=== PATIENT | female | born 1945 | race Caucasian/White ===

== ENCOUNTER → 2017-10-06 | Outpatient (CLI) | payer MEDICARE, OTHER ==
[~2017-10-06] MED LIST: CIPR-344 PO; CIPR500S3 PO; CLON-388 PO; CYAN500T54 PO; ESC10 PO; ESTR0.62 PO; HYDR-2966 PO; HYDR-4309 PO; LEVO-317 PO; LISI10TA PO; METO50TA19 PO; METR-1 PO; MIRA50TA PO; ONDA4TAB PO; ONDA8TAB94 PO
--- NOTE | 2017-10-08 15:07 | RADIOLOGY IMAGING REPORT ---
FACILITY: [facility] [place] PATIENT NAME: MAGDALENO WADDELL : [id number] MR: [id number] V: [id number] EXAM DATE: [id number] ORDERING PHYSICIAN: MEDINA GANDHI TECHNOLOGIST: Arminda Baez PROCEDURE:BILATERAL DIGITAL SCREENING MAMMOGRAM WITH CAD ASSISTED INTERPRETATION AND 3D BREAST TOMOSYNTHESIS. COMPARISON:Prior mammograms dated 07/15/16, 07/23/15, 07/25/14, 06/22/13 and 06/23/12. FINDINGS: A small amount of fibroglandular tissue is seen throughout the breasts. The parenchymal pattern has remained stable when allowing for difference in mammographic technique and patient positioning. There is no evidence of malignant appearing mass, malignant appearing calcification or other secondary sign of malignancy in either breast. DIAGNOSTIC CATEGORY 1--NEGATIVE. RECOMMENDATIONS: ROUTINE MAMMOGRAM AND CLINICAL EVALUATION. IMPRESSION: Bi-RADS 1: No significant abnormality is seen. Images were reviewed with R2CAD and 3D breast tomosynthesis. Dictated by: Argentina Zelaya M.D. on 10/06/2017 at 13:23 Transcribed by: HILLARY on 10/07/2017 at 18:49 Approved by: Argentina Zelaya M.D. on 10/08/2017 at 15:06 [facility]
== END ==
LOC: MAMO 02:24
PROVIDERS: ATTEND Family Medicine
DX: Z12.31 Encounter for screening mammogram for malignant neoplasm of breast (principal)
CPT/HCPCS: 77063; 77067

== ENCOUNTER 2017-11-09 00:27 | Day surgery (SDC) | payer MEDICARE, OTHER ==
--- NOTE | 2017-11-08 12:26 | NACHTIGAL H&P ---
DATE OF ADMISSION: November 09, 2017 CHIEF COMPLAINT Lump in the upper right arm. HISTORY OF PRESENT ILLNESS This is a 72-year-old female who complains of a painful lump in the upper right arm. No history of trauma. Lump has been there for quite some time. ALLERGIES She has no known allergies. CURRENT MEDICATIONS 1. Clonazepam 0.5 mg nightly. 2. Escitalopram 10 mg. 3. Levoxyl 112 mcg. 4. Metoprolol 50 mg. 5. Myrbetriq 50 mg. PAST MEDICAL HISTORY/OPERATIONS She has had a back operation, cataract removal, cholecystectomy, colonoscopy, gastric sleeve operation, hysterectomy, lap band, shoulder surgery. REVIEW OF SYSTEMS No cardiac disease, pulmonary disease, liver or kidney disease, diabetes. She does have hypertension. PHYSICAL EXAMINATION GENERAL: 72-year-old female in no acute distress. LUNGS: Clear. HEART: Regular rhythm. SKIN: She has a 6 cm subcutaneous mass in the upper arm laterally. IMPRESSION Lipoma. PLAN Will excise. Discussed procedure, complications, recovery time. She seemed to understand and wishes to proceed. SUDEEP
[~2017-11-09] VITALS: Ht 154.9 cm; Wt 79.8 kg
[~2017-11-09 00:27] MED LIST changes: +BIOT5000 PO
--- NOTE | 2017-11-09 12:19 | Post Operative Progress Note ---
Post Operative Progress Note Date: Nov 09, 2017 Time: 14:26 Surgeon: argenis Anesthesia: dr zambrano Pre-Op Diagnosis: lipoma right upper arm Post-Op Diagnosis: same Procedure(s): excision of 6 cm lipoma right upper arm MEKHI JACK MD Nov 09, 2017 12:19
[2017-11-09] MEDS ORDERED: HYDR-4309 PO (12:20)
--- NOTE | 2017-11-09 12:22 | Short(Outpt) Discharge Summary ---
Discharge Summary Reason for Hosp/Final Diag: (1) Lipoma of extremity Hospital Course & Plan: 6 cm lipoma excised right upper arm Departure Discharge to: Home Discharge Instructions Home Meds Active Scripts Hydrocodone Bit/Acetaminophen (NORCO 5-325 TABLET) 1 Each Tablet, 1 EACH PO Q4H Y for PAIN, #20 TAB Prov:MEKHI JACK MD 11/09/17 Reported Medications Biotin (Biotin) 5,000 Mcg Tab.rapdis, 5000 MCG PO DAILY 11/08/17 Cyanocobalamin (Vitamin B-12) (B-12) 500 Mcg Tablet, 1 TAB PO DAILY 09/11/13 Clonazepam (CLONAZEPAM) 0.5 Mg Tab.rapdis, 1 TAB PO DAILY 09/11/13 Mirabegron (MYRBETRIQ) 50 Mg Tab.er.24h, 1 TAB PO DAILY 09/11/13 Escitalopram Oxalate (LEXAPRO) 10 Mg Tab, 1 TAB PO DAILY 09/11/13 Metoprolol Succinate (METOPROLOL SUCCINATE) 50 Mg Tab.er.24h, 1 TAB PO BID 09/11/13 Levothyroxine Sodium (LEVOXYL) 125 Mcg Tablet, 1 TAB PO DAILY 09/11/13 Discontinued Reported Medications Ciprofloxacin Hcl (CIPRO) 500 Mg Tablet, 500 MG PO BID 09/11/13 Metronidazole (FLAGYL) 500 Mg Tablet, 500 MG PO TID 09/11/13 Hydrocodone Bit/Acetaminophen (NORCO 5-325 TABLET) 1 Each Tablet, 1 EACH PO Q6H 09/11/13 Ondansetron (ZOFRAN ODT) 4 Mg Tab.rapdis, 8 MG PO Q8H 09/11/13 Lisinopril (ZESTRIL) 10 Mg Tablet, 1 TAB PO DAILY 09/11/13 Hydrochlorothiazide (HYDROCHLOROTHIAZIDE) 25 Mg Tablet, 1 TAB PO DAILY 09/11/13 Estrogens, Conjugated 0.625 Mg Tab (PREMARIN 0.625 MG TAB) 0.625 Mg Tablet, 1 TAB PO DAILY 09/11/13 Discontinued Scripts Ondansetron (ZOFRAN ODT) 8 Mg Tab.rapdis, 8 MG PO Q8H, #10 TAB TAKE 1 TABLET BY MOUTH EVERY 8 HOURS Prov:MEDINA ARCEO MD 09/11/13 Hydrocodone Bit/Acetaminophen (NORCO 5-325 TABLET) 1 Each Tablet, 1 EACH PO Q6H , #20 TAB Prov:MEDINA ARCEO MD 09/11/13 Metronidazole (FLAGYL) 500 Mg Tablet, 500 MG PO TID, #30 Prov:MEDINA ARCEO MD 09/11/13 Ciprofloxacin 500 MG/5 ML ORAL SUSP (Ciprofloxacin 500 MG/5 ML ORAL SUSP) 500 Mg /5 Ml Liyah.mc.rec, 500 MG PO BID, #20 BOT TAKE 1 TABLET BY MOUTH TWICE A DAY Prov:MEDINA ARCEO MD 09/11/13 Diet: Regular Activity: As Tolerated Special Instructions: remove bandage and shower to see me in one week, call [phone] for apt MEKHI JACK MD Nov 09, 2017 12:22
[2017-11-09 12:45] LABS: PLATELET COUNT, AUTOMATED 182 K/uL (150-450)
[2017-11-09] MEDS ORDERED: PROPOFOL EMUL(*) 10MG/ML 20 ML 20 ML ONE (12:46)
[2017-11-09] MEDS ORDERED: LIDOCAINE MPF 1% 5 ML VIAL ONE (12:46)
[2017-11-09] MEDS ORDERED: ONDANSETRON 4 MG/2 ML VIAL ONE (12:46)
[2017-11-09] MEDS ORDERED: NORMOSOL R SOLN(*) 1000 ML BAG 1,000 ML IV PRN (12:55)
[2017-11-09] MEDS ORDERED: MIDAZOLAM 2 MG/2 ML VIAL IVP PRN (12:55)
[2017-11-09] MEDS ORDERED: LIDOCAINE/SOD BICARB 8.4% SYR ID ONE (12:55)
[2017-11-09] MEDS ORDERED: FAMOTIDINE 20 MG TAB PO ONE (12:55)
[2017-11-09 13:04] VITALS: BP 177/87
[2017-11-09] MEDS ORDERED: fentaNYL CITR 100 MCG/2 ML AMP ONE (13:47)
[2017-11-09] MEDS ORDERED: ROPIVACAINE 0.2% 20 ML VIAL ONE ×2 (13:48→14:16)
[2017-11-09] MEDS ORDERED: LIDO/EPI 1% MDV 1:100,000 20ML INFIL ONE (13:50)
[2017-11-09 14:32] VITALS: BP 177/87
[2017-11-09 15:02] VITALS: BP 146/85
[2017-11-09 15:19] VITALS: BP 161/88
[2017-11-09 15:23] VITALS: BP 152/86
--- NOTE | 2017-11-09 19:29 | OPERATIVE REPORT 1 ---
EVENT DATE: November 09, 2017 SURGEON: Natalio Olson MD ANESTHESIOLOGIST: Ranjith Garza MD ANESTHESIA: Sedation. PREOPERATIVE DIAGNOSIS A 6 cm lipoma of the right upper arm. POSTOPERATIVE DIAGNOSIS A 6 cm lipoma of the right upper arm. PROCEDURE PERFORMED Excision of 6 cm lipoma, upper arm. DESCRIPTION OF PROCEDURE The patient was placed in the supine position and given intravenous sedation. The area was prepped and draped in a sterile fashion. We anesthetized the skin with 1% Xylocaine with epinephrine. A transverse incision was made. We then proceeded to dissect out and remove piecemeal a lobulated 6 cm lipoma. This was down to the muscle, but not involving the muscle. Hemostasis was obtained with electrocautery. The subcutaneous tissue was injected with 20 mL of 0.2% ropivacaine. The skin was closed with interrupted 4-0 Maxon. Steri-Strips and an Airstrip were placed. The patient tolerated the procedure well. No apparent complication. MTDD
== END 2017-11-09 15:48 | disposition home or self-care (01) ==
LOC: OR 00:27
PROVIDERS: ATTEND Surgery
DX: D17.21 Benign lipomatous neoplasm of skin and subcutaneous tissue of right arm (principal)
CPT/HCPCS: 24071; 36415; 85025; A9270; J2001; J2405; J2704; J2795; J3010; 88304

== ENCOUNTER → 2018-12-02 | Outpatient (CLI) | payer MEDICARE, OTHER ==
[~2018-12-02] MED LIST changes: -HYDR-4309 PO; +HYDR-653 PO
--- NOTE | 2018-12-02 16:37 | RADIOLOGY IMAGING REPORT ---
[place] [facility] [place]IENT NAME: MAGDALENO WADDELL : [id number] MR: [id number] V: [id number] EXAM DATE: [id number] ORDERING PHYSICIAN: MEDINA GANDHI TECHNOLOGIST: Stefany Bolaños PROCEDURE:BILATERAL DIGITAL SCREENING MAMMOGRAM WITH CAD ASSISTED INTERPRETATION & 3D TOMOSYNTHESIS COMPARISON:Prior mammograms 10/06/17, priors to 07/25/14. INDICATIONS:screening FINDINGS: Breast parenchyma density is predominantly fatty. There are no mammographic findings concerning for malignancy. No significant interval change. DIAGNOSTIC CATEGORY 1--NEGATIVE. RECOMMENDATIONS: ROUTINE MAMMOGRAM AND CLINICAL EVALUATION IN 1 YR. IMPRESSION: BIRADS 1: Negative. Dictated by: Shlomo Rice on 12/02/2018 at 15:42 Transcribed by: GIOVANNI on 12/02/2018 at 16:18 Approved by: Shlomo Rice on 12/02/2018 at 16:36 [facility]
== END ==
LOC: MAMO 01:18
PROVIDERS: ATTEND Family Medicine
DX: Z12.31 Encounter for screening mammogram for malignant neoplasm of breast (principal)
CPT/HCPCS: 77063; 77067

== ENCOUNTER 2019-03-24 02:30 | Emergency (ER) | payer MEDICARE, OTHER ==
--- NOTE | 2019-03-24 02:45 | ER Report ---
History and Physical Time Seen By MD: 02:38 HPI/ROS CHIEF COMPLAINT: Left lower quadrant abdominal pain HISTORY OF PRESENT ILLNESS: 74-year-old female presents ambulatory to the ER complaining of left lower quadrant abdominal pain radiating to her rectum. Patient made a batch of green chili tonight ate some became quite sick afterwards. Patient notes no fever or chills. She states that she's had diverticulitis of the right side of her abdomen. The distant past. She thinks this feels similar to it. She denies dysuria. Patient status post appendectomy and cholecystectomy. Patient has a gastric sleeve. REVIEW OF SYSTEMS: Respiratory: No cough, no dyspnea. Cardiovascular: No chest pain, no palpitations. Gastrointestinal: As above Musculoskeletal: No back pain. Allergies: Coded Allergies: No Known Drug Allergies (Verified , 09/11/13) Home Meds Active Scripts Hydrocodone Bit/Acetaminophen (HYDROCODON-ACETAMINOPHEN 5-325) 1 Each Tablet, 1 EACH PO Q4-6H PRN for PAIN, #12 TAKE ONE TABLET BY MOUTH EVERY 4-6 HOURS NEEDED FOR PAIN Prov:JEAN LORD Slava DO 03/24/19 Ondansetron 4 Mg Odt (ONDANSETRON 4 MG ODT) 4 Mg Tab.rapdis, 4 MG PO Q6H PRN for NAUSEA/VOMITING, #12 TAB Prov:JEAN LORD 03/24/19 Metronidazole (FLAGYL) 500 Mg Tablet, 500 MG PO BID for infection, #14 TAB Prov:JEAN LORD DO 03/24/19 Ciprofloxacin Hcl 500 Mg Tab (CIPRO 500 MG TAB) 500 Mg Tablet, 500 MG PO BID for infection, #14 Prov:JEAN LORD DO 03/24/19 Reported Medications Lactobacillus Acidophilus (PROBIOTIC) 1 Each Capsule, 1 EACH PO DAILY, CAPSULE 03/24/19 Biotin (Biotin) 5,000 Mcg Tab.rapdis, 5000 MCG PO DAILY 11/08/17 Cyanocobalamin (Vitamin B-12) (B-12) 500 Mcg Tablet, 1 TAB PO DAILY 09/11/13 Clonazepam (CLONAZEPAM) 0.5 Mg Tab.rapdis, 1 TAB PO DAILY 09/11/13 Mirabegron (MYRBETRIQ) 50 Mg Tab.er.24h, 1 TAB PO DAILY 09/11/13 Escitalopram Oxalate (LEXAPRO) 10 Mg Tab, 1 TAB PO DAILY 1/6/14 Metoprolol Succinate (METOPROLOL SUCCINATE) 50 Mg Tab.er.24h, 1 TAB PO BID 09/11/13 Levothyroxine Sodium (LEVOXYL) 125 Mcg Tablet, 1 TAB PO DAILY 09/11/13 Discontinued Scripts Hydrocodone Bit/Acetaminophen (NORCO 5-325 TABLET) 1 Each Tablet, 1 EACH PO Q4H PRN for PAIN, #20 TAB Prov:MEKHI JACK MD 11/09/17 Reviewed Nurses Notes: Yes Old Medical Records Reviewed: Yes Hx Smoking: No (45 YRS AGO) Smoking Status: Former Smoker Hx Substance Use Disorder: No Hx Alcohol Use: Yes (RARE) Constitutional Vital Sign - Last 24 Hours 03/24/19 03/24/19 03/24/19 03/24/19 02:30 02:35 02:41 02:45 Temp 98.2 Pulse ??? 62 Resp 18 B/P (MAP) 168/78 (108) 168/78 151/76 (101) Pulse Ox 93 O2 Delivery Nasal Cannula 03/24/19 03/24/19 03/24/19 03/24/19 03:00 03:15 03:30 03:36 Pulse ??? B/P (MAP) 148/73 (98) 141/64 (89) ???/??? (1665) 151/72 (98) 03/24/19 03/24/19 03/24/19 03:45 04:00 04:15 Pulse 70 B/P (MAP) 150/71 (97) 144/70 (94) 152/70 (97) Pulse Ox 96 Physical Exam General Appearance: The patient is alert, has no immediate need for airway protection and no current signs of toxicity. Vital signs stable, afebrile, pulse ox normal, slightly pale appearing, skin warm and dry Eyes: Pupils equal and round no injection. Respiratory: Chest is non tender, lungs are clear to auscultation. Cardiac: regular rate and rhythm Gastrointestinal: Abdomen is soft, moderate left lower quadrant tenderness with some guarding, no masses, bowel sounds normal. Musculoskeletal: Neck: Neck is supple and non tender. Extremities have full range of motion and are non tender. Skin: No rashes or lesions. DIFFERENTIAL DIAGNOSIS: After history and physical exam differential diagnosis was considered for abdominal pain including but not limited to appendicitis, cholecystitis, diverticulitis, pancreatitis gastritis and urinary tract infection. Medical Decision Making Data Points Result Diagram: 03/24/19 0255 03/24/19 0255 Laboratory Hematology Test 03/24/19 02:55 White Blood Count 8.6 k/uL (4.5-11.0) Red Blood Count 4.82 M/uL (4.17-5.56) Hemoglobin 14.4 g/dL (12.0-16.0) Hematocrit 42.2 % (34.0-47.0) Mean Corpuscular Volume 87.5 fL (80.0-96.0) Mean Corpuscular Hemoglobin 29.8 pg (26.0-33.0) Mean Corpuscular Hemoglobin Concent 34.1 g/dL (32.0-36.0) Red Cell Distribution Width 14.0 % (11.5-14.5) Platelet Count 183 K/uL (150-450) Mean Platelet Volume 7.7 fL (7.2-11.1) Neutrophils (%) (Auto) 70.8 % (39.4-72.5) Lymphocytes (%) (Auto) 21.2 % (17.6-49.6) Monocytes (%) (Auto) 5.8 % (4.1-12.4) Eosinophils (%) (Auto) 1.6 % (0.4-6.7) Basophils (%) (Auto) 0.6 % (0.3-1.4) Nucleated RBC Relative Count (auto) 0.1 /100WBC Neutrophils # (Auto) 6.1 K/uL (2.0-7.4) Lymphocytes # (Auto) 1.8 K/uL (1.3-3.6) Monocytes # (Auto) 0.5 K/uL (0.3-1.0) Eosinophils # (Auto) 0.1 K/uL (0.0-0.5) Basophils # (Auto) 0.0 K/uL (0.0-0.1) Nucleated RBC Absolute Count (auto) 0.01 K/uL Chemistry Test 03/24/19 02:55 Sodium Level 136 mmol/L (137-145) Potassium Level 3.4 mmol/L (3.5-5.0) Chloride Level 101 mmol/L (98-107) Carbon Dioxide Level 29 mmol/L (22-31) Blood Urea Nitrogen 12 mg/dl (7-18) Creatinine 0.80 mg/dl (0.52-1.04) Glomerular Filtration Rate Calc > 60.0 Random Glucose 122 mg/dl (75-110) Calcium Level 8.9 mg/dl (8.4-10.2) Total Bilirubin 0.5 mg/dl (0.2-1.3) Aspartate Amino Transf (AST/SGOT) 19 U/L (0-35) Alanine Aminotransferase (ALT/SGPT) 26 U/L (0-56) Alkaline Phosphatase 98 U/L (0-126) Total Protein 7.0 g/dl (6.3-8.2) Albumin 3.9 g/dl (3.5-5.0) Amylase Level 72 U/L (0-110) Lipase 188 U/L (23-300) Urinalysis Test 03/24/19 02:35 Urine Color Yellow Urine Clarity Clear Urine pH 6.0 pH (4.8-9.5) Urine Specific [place] 1.014 Urine Protein Negative mg/dL (NEGATIVE) Urine Glucose (UA) Negative mg/dL (NEGATIVE) Urine Ketones Negative mg/dL (NEGATIVE) Urine Blood Negative (NEGATIVE) Urine Nitrite Negative (NEGATIVE) Urine Bilirubin Negative (NEGATIVE) Urine Urobilinogen Negative mg/dL (0.2-1.9) Urine Leukocyte Esterase Negative (NEGATIVE) Urine RBC 1 /HPF (0-2/HPF) Urine WBC 3 /HPF (0-5/HPF) Urine Squamous Epithelial Cells Few /LPF (</=FEW) Urine Transitional Epithelial Cells Moderate /LPF (NONE-FEW) Urine Bacteria Few /HPF (NONE-FEW) Urine Mucus Few /HPF (NONE-FEW) EKG/Imaging Imaging Results: CT scan of the abdomen and pelvis with IV contrast was obtained. The results of the study are CT ABDOMEN PELVIS W/ CON HISTORY: Left lower quadrant abdominal pain for 2 days. History of diverticulitis. COMPARISON: 09/11/2013 and studies dating to 08/09/2007. TECHNIQUE: Axial images were obtained from the lung bases through the symphysis pubis with intravenous contrast. Sagittal and coronal reformats were performed. One of the following dose optimization techniques was utilized in the performance of this exam: Automated exposure control; adjustment of the mA and/or kV according to the patient's size; or use of an iterative reconstruction technique. Specific details can be referenced in the facility's radiology CT exam operational policy. CONTRAST: 75 mL IV Isovue-370. FINDINGS: LOWER CHEST: There is minimal atelectasis. LIVER: Normal. GALLBLADDER/BILIARY: Cholecystectomy. No intrahepatic or extrahepatic ductal dilation. PANCREAS: Normal. SPLEEN: Normal. ADRENALS: Normal. KIDNEYS/URETERS/BLADDER: Normal. GI/MESENTERY/PERITONEAL CAVITY: Changes of gastric bypass. There is a small type I hiatal hernia. There is no bowel obstruction. There is inflammation around a short, thickened/edematous segment of sigmoid colon. There are diverticula in this location and one of the diverticula is inflamed (image 111 series 2). There is stranding in the adjacent fat and a small amount of free fluid tracks into the pelvis. No abscess or drainable fluid collection. No free air. There are sigmoid and descending colon diverticula. The appendix is not discretely visualized. No inflammatory stranding in the right lower quadrant. VESSELS: There is mild atherosclerotic disease. No aneurysm. No dissection. 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 NODES: Normal. PELVIS: Right pelvic phlebolith. Uterus is absent. Ovaries are normal. BONES/VERTEBRA/SOFT TISSUES: There is mild degenerative change of the hips. There is mild to moderate multilevel degenerative change of the spine. There are numerous vacuum clefts. There is 3 mm anterolisthesis of L4 compared to L5, unchanged. There is mild narrowing the spinal canal at T8-9, T12-L1, L3-4, and L4-5 secondary to degenerative changes. IMPRESSION: 1. Uncomplicated sigmoid diverticulitis. 2. Diverticulosis of the descending and sigmoid colon. 3. Degenerative changes of the spine. The study was read by the radiologist. I viewed the images myself on the PACS system. ED Course/Re-evaluation Clinical Indication for ER IV: Hydration, IV Access ED Course Patient was admitted to an examination room. H&P was done. The differential diagnoses was considered. On clinical examination. Patient has left lower quadrant pain. She does have a history of diverticulitis. Patient had one loose stool. She also had spicy green chili, which he thinks may be giving her some discomfort. Peripheral IV was established. Patient was treated with IV Zofran and fentanyl. Diagnostic studies were sent off. A CT scan of the abdomen and pelvis was performed which shows diverticulitis of the sigmoid colon. Patient be treated with Cipro and Flagyl. She's given Zofran and Lortab for pain relief. She's also advised ibuprofen. She is advised to return if unimproved in 2 days for reevaluation. Decision to Disposition Date: Mar 24, 2019 Decision to Disposition Time: 03:59 Depart Departure Latest Vital Signs Vital Signs Date Time Temp Pulse Resp B/P (MAP) Pulse Ox O2 Delivery O2 Flow Rate FiO2 03/24/19 04:15 152/70 (97) 03/24/19 04:00 70 96 03/24/19 02:41 98.2 18 Nasal Cannula Impression: Primary Impression: Diverticulitis Condition: Improved Disposition: HOME OR SELF-CARE Referrals: MEDINA GANDHI MD (PCP) New Scripts Hydrocodone Bit/Acetaminophen (HYDROCODON-ACETAMINOPHEN 5-325) 1 Each Tablet 1 EACH PO Q4-6H PRN for PAIN, #12 TAKE ONE TABLET BY MOUTH EVERY 4-6 HOURS NEEDED FOR PAIN Prov: JEAN LORD DO 03/24/19 Ondansetron 4 Mg Odt (ONDANSETRON 4 MG ODT) 4 Mg Tab.rapdis 4 MG PO Q6H PRN for NAUSEA/VOMITING, #12 TAB Prov: JEAN LORD DO 03/24/19 Metronidazole (FLAGYL) 500 Mg Tablet 500 MG PO BID for infection, #14 TAB Prov: JEAN LORD DO 03/24/19 Ciprofloxacin Hcl 500 Mg Tab (CIPRO 500 MG TAB) 500 Mg Tablet 500 MG PO BID for infection, #14 Prov: JEAN LORD DO 03/24/19 Patient Instructions: Clear Liquid Diet (ED), Diverticulitis (ED) Additional Instructions: Follow clear liquid diet for 48 hours and advance to [place] diet, bananas, rice, applesauce and toast Avoid fatty food, greasy foods, vegetables and dairy for at least 72 hours Take ibuprofen 200 mg 2-3 tablets 3 times a day for inflammatory pain relief Follow-up with your primary care if unimproved in 2-5 days Return to the ER for any worsening JEAN LORD DO Mar 24, 2019 02:45
[2019-03-24] MEDS ORDERED: NS(*) 0.9% 1000 ML BAG 1,000 ML IV ONE (02:46)
[2019-03-24] MEDS ORDERED: LACT1CAP4 PO (02:47)
[2019-03-24] MEDS ORDERED: fentaNYL CITR 100 MCG/2 ML AMP IVP ONE (02:50)
[2019-03-24] MEDS ORDERED: ONDANSETRON 4 MG/2 ML VIAL IVP ONE (02:50)
[2019-03-24 03:11] LABS: PLATELET COUNT, AUTOMATED 183 K/uL (150-450)
[2019-03-24] MEDS ORDERED: IOPAMIDOL 76% 100 ML INFUS BTL 100 ML ONE (03:16)
--- NOTE | 2019-03-24 04:06 | RADIOLOGY IMAGING REPORT ---
FACILITY: [facility] PATIENT NAME: Rona Sanders : 1945 MR: [id number] V: [id number] EXAM DATE: ORDERING PHYSICIAN: JEAN LORD TECHNOLOGIST: Location: [facility] Patient: Rona Sanders : 1945 Visit/Account:[id number] Date of Sevice: 03/24/2019 CT ABDOMEN PELVIS W/ CON HISTORY: Left lower quadrant abdominal pain for 2 days. History of diverticulitis. COMPARISON: 09/11/2013 and studies dating to 08/09/2007. TECHNIQUE: Axial images were obtained from the lung bases through the symphysis pubis with intravenou s contrast. Sagittal and coronal reformats were performed. One of the following dose optimization techniques was utilized in the performance of this exam: Autom ated exposure control; adjustment of the mA and/or kV according to the patient's size; or use of an i terative reconstruction technique. Specific details can be referenced in the facility's radiology CT exam operational policy. CONTRAST: 75 mL IV Isovue-370. FINDINGS: LOWER CHEST: There is minimal atelectasis. LIVER: Normal. GALLBLADDER/BILIARY: Cholecystectomy. No intrahepatic or extrahepatic ductal dilation. PANCREAS: Normal. SPLEEN: Normal. ADRENALS: Normal. KIDNEYS/URETERS/BLADDER: Normal. GI/MESENTERY/PERITONEAL CAVITY: Changes of gastric bypass. There is a small type I hiatal hernia. The re is no bowel obstruction. There is inflammation around a short, thickened/edematous segment of sigm oid colon. There are diverticula in this location and one of the diverticula is inflamed (image 111 s eries 2). There is stranding in the adjacent fat and a small amount of free fluid tracks into the pel vis. No abscess or drainable fluid collection. No free air. There are sigmoid and descending colon di verticula. The appendix is not discretely visualized. No inflammatory stranding in the right lower qu adrant. VESSELS: There is mild atherosclerotic disease. No aneurysm. No dissection. There are duplicated delio l arteries bilaterally. NODES: Normal. PELVIS: Right pelvic phlebolith. Uterus is absent. Ovaries are normal. BONES/VERTEBRA/SOFT TISSUES: There is mild degenerative change of the hips. There is mild to moderate multilevel degenerative change of the spine. There are numerous vacuum clefts. There is 3 mm anterol isthesis of L4 compared to L5, unchanged. There is mild narrowing the spinal canal at T8-9, T12-L1, L 3-4, and L4-5 secondary to degenerative changes. IMPRESSION: 1. Uncomplicated sigmoid diverticulitis. 2. Diverticulosis of the descending and sigmoid colon. 3. Degenerative changes of the spine. Report Dictated By: Carmita Lilly at 03/24/2019 3:49 AM Report E-Signed By: Carmita Lilly at 03/24/2019 3:59 AM WSN:[id number]
[2019-03-24 04:15] VITALS: BP 152/70
[2019-03-24] MEDS ORDERED: CIPROFLOXACIN 500 MG TAB PO ONE (04:20)
[2019-03-24] MEDS ORDERED: ACET/HYDROC 5/325MG TH ER ONLY 2 TAB/BOTTLE PO ONE (04:20)
[2019-03-24] MEDS ORDERED: ONDANSETRON 4 MG ODT TH SL ONE (04:20)
[2019-03-24] MEDS ORDERED: METRONIDAZOLE 500 MG TABLET PO ONE (04:20)
[2019-03-24] MEDS ORDERED: ONDA4TAB9 PO (04:23)
[2019-03-24] MEDS ORDERED: CIPR-344 PO (04:23)
[2019-03-24] MEDS ORDERED: METR-1 PO (04:23)
[2019-03-24] MEDS ORDERED: LOR5/325 PO (04:23)
== END 2019-03-24 04:33 | disposition home or self-care (01) ==
LOC: ER 03:21
DX: K57.92 Diverticulitis of intestine, part unspecified, without perforation or abscess without bleeding (principal)
CPT/HCPCS: 74177; 81001; 82150; 83690; 85025; 96361; 96374; 96375; 99284; A9270; J2405; J3010; J7030; Q0162; Q9967; 82040; 82247; 82310; 82374; 82435; 82565; 82947; 84075; 84132; 84155; 84295; 84450; 84460; 84520; S0119